=== PATIENT | male | born 1980 | race African-American/Black ===

== ENCOUNTER 2020-08-05 00:43 | Emergency (ER) | payer SELFPAY ==
[~2020-08-05] VITALS: Ht 172.7 cm; Wt 90.7 kg
[2020-08-05] MEDS ORDERED: SPIRONOLACTONE25 MG ORAL (00:59)
[2020-08-05] MEDS ORDERED: CLOPIDOGREL75 MG ORAL (01:01)
[2020-08-05] MEDS ORDERED: ASPIRIN-LOW81 MG ORAL (01:01)
[2020-08-05] MEDS ORDERED: LEXAPRO20 MG ORAL (01:01)
[2020-08-05] MEDS ORDERED: TRAZODONE HCL50 MG ORAL (01:01)
[2020-08-05] MEDS ORDERED: AMLODIPINE BESY10 MG ORAL (01:02)
[2020-08-05] MEDS ORDERED: COREG6.25 MG ORAL (01:02)
[2020-08-05] MEDS ORDERED: LISINOPRIL-HCT1 EAC2 ORAL (01:03)
[2020-08-05] MEDS ORDERED: LIPITOR40 MG ORAL (01:03)
--- NOTE | 2020-08-05 01:05 | Emergency Room Report ---
History of Present Illness General Chief Complaint: Multiple Trauma/Fall Source: Patient, Family Member Present Illness HPI This a 40-year-old male with a history of high blood pressure. He presents with chief complaint of syncope. Patient said he was sitting down talking to his family member. He started coughing and then he passed out. According to his sister he passed out for 1 to 2 seconds. He did not have any prodromes before the syncope. No palpitation. No diaphoresis. Known thing he did was coughing after smoking some marijuana. Denies any alcohol or other drug use. Never had this problem before. No chest pain. No palpitation. Does have some headache to the back of his head. Allergies: Coded Allergies: No Known Allergies (Unverified , 08/05/20) COVID-19 Screening Contact w/high risk pt: No Experienced COVID-19 symptoms?: No COVID-19 Testing performed [employer]ODUCT [employer]: No Patient History Past Medical History: see triage record, old chart reviewed, HTN Past Surgical History: none Pertinent Family History: none Social History: Denies: smoking Immunizations: other Reviewed Nursing Documentation: PMH: Agreed; PSxH: Agreed Nursing Documentation-PMH Hx Cardiac Problems: Yes Hx Hypertension: Yes History Of Psychiatric Problem: Yes Review of Systems Eye: Denies: eye pain, blurred vision ENT: Denies: ear pain, nose congestion, throat swelling Respiratory: Denies: cough, shortness of breath Cardiovascular: Denies: chest pain, palpitations Gastrointestinal: Denies: abdominal pain, diarrhea, nausea, vomiting Musculoskeletal: Denies: back pain, joint pain Skin: Denies: rash Neurological: Denies: headache, numbness Endocrine: Denies: increased thirst, increased urine Hematologic/Lymphatic: Denies: easy bruising All Other Systems: negative except mentioned in HPI Physical Exam Vital Signs Date Time Temp Pulse Resp B/P (MAP) Pulse Ox O2 Delivery O2 Flow Rate FiO2 08/05/20 00:51 98.8 87 16 145/87 (106) 97 Room Air Vitals normal Sp02 EP Interpretation: reviewed, normal General Appearance: well appearing, no apparent distress, alert, obese Head: normocephalic, atraumatic Eyes: bilateral eye PERRL, bilateral eye EOMI ENT: hearing grossly normal, normal pharynx Neck: full range of motion, supple, no meningismus Respiratory: chest non-tender, lungs clear, normal breath sounds Cardiovascular #1: regular rate, rhythm, no murmur Gastrointestinal: normal bowel sounds, non tender, no mass, no organomegaly, no bruit, non-distended Musculoskeletal: back normal, normal range of motion, gait/station normal Psychiatric: mood/affect normal Medical Decision Making Diagnostic Impression: Primary Impression: Syncope Qualified Codes: R55 - Syncope and collapse Additional Impression: Head injury, acute Qualified Codes: S09.90XA - Unspecified injury of head, initial encounter ER Course Patient presents with a syncopal episode while coughing. This is probably secondary to a vagal response from the coughing. No evidence of ACS, PE, dissection to name a few. No evidence of TIA or CVA. Vital signs are stable here. Will discharge home. EKG Diagnostic Results Rate: normal Rhythm: NSR ST Segments: no acute changes Rhythm Strip Diag. Results EP Interpretation: yes Rate: 84 Rhythm: NSR, no PVC's, no ectopy Chest X-Ray Diagnostic Results Chest X-Ray Diagnostic Results : Chest X-Ray Ordered: Yes # of Views/Limited/Complete: 1 View Indication: Chest Pain EP Interpretation: Yes Interpretation: no consolidation, no effusion, no pneumothorax, no acute cardiopulmonary disease Impression: No acute disease Electronically Signed by: Artur Chou MD CT/MRI/US Diagnostic Results CT/MRI/US Diagnostic Results : Imaging Test Ordered: CT head Impression Per radiologist negative. Last Vital Signs Date Time Temp Pulse Resp B/P (MAP) Pulse Ox O2 Delivery O2 Flow Rate FiO2 08/05/20 00:51 98.8 87 16 145/87 (106) 97 Room Air Status: improved Disposition: HOME, SELF-CARE Condition: Stable Additional Instructions: Follow-up with your doctor in 7 days. Take your medication. Return if symptoms worsen. Artur Chou MD Aug 05, 2020 01:05
--- NOTE | 2020-08-05 01:05 | NUR ---
ED Nurse Note: Patient walked into the ED with c/o soreness in nape/neck and shoulder area s/p fainting. Patient was with family talking and started to pass out after coughing. Family members stated pt passed out for 1-2 seconds. Cause is unknown. No open wounds/ laceration noted. Patient is AAOx4 and ambulatory. Placed on monitor bed.
--- NOTE | 2020-08-05 01:10 | NUR ---
ED Nurse Note: ERMD at bedside
--- NOTE | 2020-08-05 01:15 | NUR ---
ED Nurse Note: Blood sent for work up
--- NOTE | 2020-08-05 01:15 | NUR ---
ED Nurse Note: Pt to CT per bed
[2020-08-05 01:19] LABS: BASOPHILS % (AUTO) 1.2 % (0.0-2.0); EOSINOPHILS % (AUTO) 2.6 % (0.0-3.0); HEMATOCRIT 39.7 % (42.0-52.0); HEMOGLOBIN 13.1 G/DL (14.2-18.0); LYMPHOCYTES % (AUTO) 41.3 % (20.0-45.0); MEAN CORPUSCULAR VOLUME 85 FL (80-99); MONOCYTES % (AUTO) 7.3 % (1.0-10.0); NEUTROPHILS % (AUTO) 47.5 % (45.0-75.0); PLATELET COUNT 255 K/UL (150-450); RED BLOOD COUNT 4.69 M/UL (4.70-6.10); RED CELL DISTRIBUTION WIDTH 12.8 % (11.6-14.8); WHITE BLOOD COUNT 8.1 K/UL (4.8-10.8)
[2020-08-05 01:38] LABS: ANION GAP 7 mmol/L (5-15); BLOOD UREA NITROGEN 17 mg/dL (7-18); CALCIUM 9.2 MG/DL (8.5-10.1); CARBON DIOXIDE 33 MMOL/L (21-32); CHLORIDE 101 MMOL/L (98-107); CREATININE 1.5 MG/DL (0.55-1.30); POTASSIUM 3.7 MMOL/L (3.5-5.1); SODIUM 141 MMOL/L (136-145)
[2020-08-05 01:40] VITALS: BP 145/87
[2020-08-05 01:42] LABS: ALANINE AMINOTRANSFERASE 35 U/L (12-78); ALBUMIN 4.5 G/DL (3.4-5.0); ALBUMIN/GLOBULIN RATIO 1.2 (1.0-2.7); ALKALINE PHOSPHATASE 55 U/L (46-116); ASPARTATE AMINO TRANSFERASE 32 U/L (15-37); BILIRUBIN,TOTAL 0.5 MG/DL (0.2-1.0)
--- NOTE | 2020-08-05 01:44 | Diagnostic Imaging Report ---
EXAM: CT Head Without Intravenous Contrast CLINICAL HISTORY: SYNCOPE TECHNIQUE: Axial computed tomography images of the head/brain without intravenous contrast. CTDI is 53.4 mGy and DLP is 1205.8 mGy-cm. One or more of the following dose reduction techniques were used: automated exposure control, adjustment of the mA and/or kV according to patient size, use of iterative reconstruction technique. COMPARISON: No relevant prior studies available. FINDINGS: Brain: Old lacunar infarct in the left ronald. No hemorrhage. No significant white matter disease. Ventricles: Unremarkable. No ventriculomegaly. Bones/joints: Unremarkable. No acute fracture. Soft tissues: Unremarkable. Sinuses: Unremarkable as visualized. No acute sinusitis. Mastoid air cells: Unremarkable as visualized. No mastoid effusion. IMPRESSION: 1. No acute intracranial pathology. 2. Old lacunar infarct in the left ronald.
--- NOTE | 2020-08-05 01:45 | NUR ---
ED Nurse Note: Patient back from CT Urine sent to lab
[2020-08-05 02:05] LABS: APPEARANCE,URINE CLEAR; BILIRUBIN, URINE NEGATIVE (NEGATIVE); GLUCOSE, URINE (UA) NEGATIVE (NEGATIVE); KETONES,URINE NEGATIVE (NEGATIVE); NITRITE,URINE NEGATIVE (NEGATIVE); PH,URINE 6 (4.5-8.0); PROTEIN,URINE NEGATIVE (NEGATIVE); UROBILINOGEN,URINE 1 MG/DL (0.0-1.0)
[2020-08-05 02:13] LABS: COLOR,URINE YELLOW
[2020-08-05 02:14] LABS: LEUKOCYTE ESTERASE ,URINE 1+ (NEGATIVE)
--- NOTE | 2020-08-05 02:22 | NUR ---
ER DISCHARGE NOTE: Patient is cleared to be discharged per ERMD, pt is aox4, on room air, with stable vital signs. pt was given dc and prescription instructions, pt was able to verbalize understanding, pt id band and iv site removed without complications. pt is able to ambulate with steady gait. pt took all belongings.
[2020-08-05 02:23] VITALS: BP 138/85
--- NOTE | 2020-08-05 08:28 | Diagnostic Imaging Report ---
EXAM: XR Chest, 1 View CLINICAL HISTORY: SOB TECHNIQUE: Frontal view of the chest. COMPARISON: No relevant prior studies available. FINDINGS: Lungs: Unremarkable. No consolidation. Pleural space: Unremarkable. No pneumothorax. Heart: Unremarkable. No cardiomegaly. Mediastinum: Unremarkable. Bones/joints: Unremarkable. IMPRESSION: Normal chest x-ray.
== END 2020-08-05 02:24 | disposition home or self-care (01) ==
LOC: EMR 01:04
DX: R55 Syncope and collapse (principal); S09.90XA Unspecified injury of head, initial encounter; X58.XXXA Exposure to other specified factors, initial encounter; Y92.9 Unspecified place or not applicable; R51 Headache; I10 Essential (primary) hypertension; E66.9 Obesity, unspecified; Z68.30 Body mass index [BMI] 30.0-30.9, adult
CPT/HCPCS: 36415; 70450; 71045; 80053; 80307; 81003; 84484; 85025; 96360; 99284; J7030